=== PATIENT | male | born 1935 | race Caucasian/White ===

== ENCOUNTER → 2019-03-21 | Outpatient (CLI) | payer OTHER ==
[~2019-03-21] MED LIST: AVELOX400 MG PO; LEVOXYL; LOVASTATIN
== END ==
LOC: M.RAD 10:50
DX: M47.812 Spondylosis without myelopathy or radiculopathy, cervical region (principal); M25.78 Osteophyte, vertebrae; M48.02 Spinal stenosis, cervical region; M43.12 Spondylolisthesis, cervical region

== ENCOUNTER → 2019-08-08 | Outpatient (CLI) | payer OTHER ==
[~2019-08-08] MED LIST changes: +FLOMAX0.4 MG PO; +OMEPRAZOLE 20 M20 M1 PO; +PRESERVISION A1 EAC2 PO
== END ==
LOC: M.RAD 10:23
DX: M25.511 Pain in right shoulder (principal)

== ENCOUNTER 2019-08-15 19:35 | Emergency (ER) | payer OTHER ==
[~2019-08-15] VITALS: Ht 177.8 cm; Wt 71.2 kg
[~2019-08-15 19:35] MED LIST changes: -FLOMAX0.4 MG PO; -OMEPRAZOLE 20 M20 M1 PO; -PRESERVISION A1 EAC2 PO
[2019-08-15] MEDS ORDERED: OMEPRAZOLE 20 M20 M1 PO (19:58)
[2019-08-15] MEDS ORDERED: PRESERVISION A1 EAC2 PO (19:58)
[2019-08-15] MEDS ORDERED: FLOMAX0.4 MG PO (19:58)
[2019-08-15 20:18] LABS: URINE BILIRUBIN NEGATIVE (Negative); URINE BLOOD TRACE (Negative); URINE CLARITY CLEAR; URINE COLOR YELLOW; URINE GLUCOSE-RANDOM NEGATIVE (Negative); URINE KETONES NEGATIVE (Negative); URINE LEUKOCYTES-REFLEX NEGATIVE (Negative); URINE NITRITE-REFLEX NEGATIVE (Negative); URINE PROTEIN NEGATIVE (Negative); URINE SPECIFIC GRAVITY <= 1.005 (1.005-1.030); URINE UROBILINOGEN 0.2 E.U./dl (0.2-1.0)
== END 2019-08-15 20:59 ==
LOC: M.ERS 19:35
PROVIDERS: Nurse Practitioner Family
DX: S23.8XXA Sprain of other specified parts of thorax, initial encounter (principal); E03.9 Hypothyroidism, unspecified; E78.00 Pure hypercholesterolemia, unspecified; Z90.89 Acquired absence of other organs; Z98.890 Other specified postprocedural states; X58.XXXA Exposure to other specified factors, initial encounter; Y92.89 Other specified places as the place of occurrence of the external cause; Y93.89 Activity, other specified; Y99.8 Other external cause status

== ENCOUNTER → 2019-11-26 | Outpatient (CLI) | payer MEDICARE ==
[~2019-11-26] MED LIST changes: +FLOMAX0.4 MG PO; +OMEPRAZOLE 20 M20 M1 PO; +PRESERVISION A1 EAC2 PO
== END ==
LOC: M.RAD 11:27
DX: S80.01XA Contusion of right knee, initial encounter (principal); X58.XXXA Exposure to other specified factors, initial encounter; Y93.89 Activity, other specified; Y92.89 Other specified places as the place of occurrence of the external cause; Y99.8 Other external cause status

== ENCOUNTER → 2020-09-16 | Outpatient (CLI) | payer MEDICARE | LOC: M.RAD 14:44 | PROVIDERS: ATTEND Orthopaedic Surgery | DX: M25.511 Pain in right shoulder (principal) ==